=== PATIENT | female | born 1945 | race Hispanic/Latino ===

== ENCOUNTER → 2019-09-08 | Outpatient (CLI) | payer OTHER | END | disposition home or self-care (01) | LOC: RAH 13:23 | PROVIDERS: ATTEND Internal Medicine | DX: I65.21 Occlusion and stenosis of right carotid artery (principal); H53.132 Sudden visual loss, left eye | CPT/HCPCS: 93880 ==

== ENCOUNTER 2024-11-04 06:53 | Observation (INO) | payer OTHER ==
[2024-10-30 12:25] LABS: BASOPHILS # (AUTO) 0.07 K/uL (0.00-0.20); EOSINOPHILS # (AUTO) 0.12 K/uL (0.00-0.70); EOSINOPHILS % (AUTO) 1.7 % (0.0-8.0); HEMATOCRIT 34.6 % (36-48); IMMATURE GRANULOCYTE ABSOLUTE 0.01 K/uL (0-1); LYMPHOCYTES # (AUTO) 1.6 K/uL (1.0-4.8); LYMPHOCYTES % (AUTO) 22.7 % (21.0-51.0); MEAN CORPUSCULAR HEMOGLOBIN 29.3 pg (27.0-33.0); MEAN CORPUSCULAR HGB CONC 32.7 g/dL (32.0-36.0); MEAN CORPUSCULAR VOLUME 89.6 fL (79-99); MONOCYTES # (AUTO) 0.5 K/uL (0.1-1.0); MONOCYTES % (AUTO) 6.6 % (3.0-13.0); NEUTROPHILS # (AUTO) 4.7 K/uL (1.8-7.7); NEUTROPHILS % (AUTO) 67.9 % (40.0-77.0); PLATELET COUNT (AUTO) 370 K/uL (130-400); RED BLOOD CELL COUNT(AUTO) 3.86 MIL/uL (4.00-5.50); RED CELL DISTRIBUTION WIDTH 13.6 % (11.0-15.5); WHITE BLOOD COUNT (AUTO) 6.9 K/uL (4.8-10.8)
[2024-10-30 12:31] LABS: APPEARANCE,URINE CLEAR (CLEAR); BILIRUBIN,URINE NEGATIVE (NEGATIVE); COLOR,URINE LIGHT-YELLOW (YELLOW); GLUCOSE, URINE (UA) NEGATIVE (NEGATIVE); KETONES,URINE NEGATIVE (NEGATIVE); LEUKOCYTE ESTERASE ,URINE NEGATIVE Leu/uL (NEGATIVE); NITRATE,URINE NEGATIVE (NEGATIVE); OCCULT BLOOD,URINE NEGATIVE (NEGATIVE); PH,URINE 5.5 (5.0-8.0); PROTEIN,URINE NEGATIVE (NEGATIVE); UROBILINOGEN,URINE 0.2 mg/dL (0.2-1.0)
[2024-10-30 12:32] LABS: ADD UA MICROSCOPIC NO
[2024-10-30 12:35] VITALS: BP 195/92; PULSE 91; RESP 18; TEMP 97.2
[2024-10-30 12:40] LABS: INR 1.05 (0.85-1.15); PROTHROMBIN TIME 11.1 SEC (9.6-11.6)
[2024-10-30 12:41] LABS: ALBUMIN 3.8 g/dL (3.5-5.0); CREATININE 0.8 mg/dL (0.5-1.0); PARTIAL THROMBOPLASTIN TIME 28.4 SEC (26.3-35.5); POTASSIUM 4.1 mmol/L (3.5-5.1)
--- NOTE | 2024-10-30 12:45 | NUR ---
RE: IS INITIAL IS INITIAL TEACHING DONE BY RT CHASE DURING PREOP
[2024-11-04] VITALS (32 sets, daily range): BP systolic 132–190; BP diastolic 65–95; PULSE 61–80; RESP 15–18; TEMP 96.9–98.2; O2SAT 99
[~2024-11-04] VITALS: Ht 152.4 cm; Wt 68.8 kg
[~2024-11-04 06:53] MED LIST: ACET-2743 PO; ALEN70TA80 PO; AMLO-257 PO; ATOR10TA69 PO; CALC-1125 PO; CETI10TA57 PO; CHOL2000 PO; CLOP75TA32 PO; FOLI1 PO; LACT1TAB26 PO; OMEG100014 PO; PANT40TA54 PO; SODI100037 PO; SOLI5 PO; SOLI5TAB6 PO; SULF500T75 PO
[2024-11-04] MEDS ORDERED: GLYCOPYRROLATE 0.2 MG/ML 5 ML VIAL ONE (06:59)
[2024-11-04] MEDS ORDERED: SUCCINYLCHOLINE CHLORIDE 20 MG/ML 10 ML VIAL ONE (06:59)
[2024-11-04] MEDS ORDERED: ondanSETRON 4MG INJ ONE (06:59)
[2024-11-04] MEDS ORDERED: LIDOCAINE PF 100MG/5ML (2%) SYRINGE 5ML ONE (06:59)
[2024-11-04] MEDS ORDERED: proPOFol 10 MG/ML 20ML VIAL IV ONE (06:59)
[2024-11-04] MEDS ORDERED: rocuRONium bROMide 10MG/1ML 5ML VL ONE ×2 (06:59→10:29)
[2024-11-04] MEDS ORDERED: dexaMETHasone SOD PHOSPHATE 10MG/ML 1ML VIAL ONE (06:59)
[2024-11-04] MEDS ORDERED: NEOSTIGMINE METHYLSULFATE 1MG/ML IV ONE (06:59)
[2024-11-04] MEDS ORDERED: MIDAZOLAM HCL 1 MG/ML 2ML VIAL ONE (07:00)
[2024-11-04] MEDS ORDERED: FENTanyl CITRate PF 50 MCG/1 ML 2ML VIAL ONE (07:00)
[2024-11-04] MEDS ORDERED: ketaMINE 50MG/ML SYRINGE 50 MG/ML DISP.SYRIN ONE (07:06)
[2024-11-04] MEDS ORDERED: ALBUMIN (HUMAN) 5% 250 ML IV ONE (07:06)
[2024-11-04] MEDS ORDERED: phenylEPHRINE HCL 10 MG/ML 1ML VIAL IV ONE (08:35)
[2024-11-04] MEDS: TRANEXAMIC ACID 1000MG/10ML ONE (09:45)
[2024-11-04] MEDS ORDERED: ondanSETRON 4MG INJ IVP PRN (10:00)
[2024-11-04] MEDS ORDERED: CALCIUM CARB 500MG PO PRN (10:00)
[2024-11-04] MEDS: ceFAZolin SODIUM 2 GM VIAL ONE (10:00)
[2024-11-04] MEDS ORDERED: CYCLOBENZAPRINE HCL 10 MG TABLET PO PRN (10:00)
[2024-11-04] MEDS ORDERED: FE FUMARATE/FA/MV, MIN COMB#15 1 TAB PO PRN (10:00)
[2024-11-04] MEDS ORDERED: traMADol HCL 50 MG TABLET PO PRN (10:00)
[2024-11-04] MEDS ORDERED: PoTASSium chloRIDE 20MEQ/100ML 100 ML IV PRN (10:00)
[2024-11-04] MEDS: ketOROlac 15MG/ML VIAL (15MG/ML) IV SCH (10:00)
[2024-11-04] MEDS ORDERED: SODIUM CHLORIDE 1,000 MG TAB PO SCH (12:00)
--- NOTE | 2024-11-04 12:10 | OP ---
Operative Note: DATE OF PROCEDURE: 11/04/24 SURGEON: ROMEO SANTILLAN MD PROFESSIONAL POKER PLAYER: TEA Alvarez ANESTHESIA: General and interscalene block ANESTHESIOLOGIST/MEDICAL INSTRUMENT CABLE FABRICATOR: JYOTHI Gamboa PREOPERATIVE DIAGNOSIS: Right shoulder cuff tear arthropathy POSTOPERATIVE DIAGNOSIS: Right shoulder cuff tear arthropathy PROCEDURE: Right reverse total shoulder arthroplasty ESTIMATED BLOOD LOSS: 150 cc COMPLICATIONS: None DRAINS: None SPECIMENS: resected bone from the humeral head not sent to pathology IMPLANTS: [employer] size 10 x 32 FX V135 humeral stem, 32 +3 135/145 stability cup, 32 centered glenosphere, +3 mm lateralized base plate with one compression and two locking screws INDICATIONS: Seth 9-year-old female with right shoulder pain and dysfunction secondary to rotator cuff arthropathy. The patient was failing conservative management and was found on MRI to have a large retracted rotator cuff tear with atrophy of the muscles. After discussion the risk, benefits, and alternatives, the patient voluntarily agreed to undergo the aforementioned procedure. DESCRIPTION OF PROCEDURE: Patient was properly identified in the preoperative holding area. Surgical site marking was verified and surgery consent reviewed. The patient was then taken to the operating room and placed in supine position on the OR table. After induction of general anesthesia, preoperative antibiotics were given, all bony prominences were well-padded as the patient was transitioned into beach chair positioning. The right upper extremity was then prepped and draped in usual sterile fashion. Surgical time out was done verifying correct surgery, side, site, and location to be performed. We then began the procedure by making approximately 12 cm long incision over the deltopectoral interval using a 10 blade. Hemostasis was performed using Bovie electrocautery. We then dissected through the subcutaneous tissues using the Metzenbaums to identify our deltopectoral interval. We then mobilized the cephalic vein laterally as we opened the interval. We then incised the clavipectoral fascia just lateral to the conjoined tendon and placed our retractor deep to this. We identified the long head of the biceps tendon and performed a tenotomy. We then began elevating the subscapularis off of its insertion on the humeral head using Bovie electrocautery. With external rotation we brought the humeral head into view and released the capsule at the inferior aspect of the head. We released a small portion of the pectoralis off of its insertion on the humerus to allow for better exposure. We then placed our retractors protecting soft tissue. At this point we began using the sounding instruments, hand reaming up to a size 12. We pinned the cutting guide off of the handle in 30 degrees of version and performed the humeral osteotomy. We then broached up to a size 10 x 32. The ronguer was used to clean up our cut. We then placed our retractors around the glenoid to provide adequate exposure of the glenoid. The labrum and long head biceps tendon were resected with Bovie electrocautery. We then used to the guide to insert our central guidepin en suring we were far enough inferior on the glenoid face. Over the central guidepin we reamed with the all-in-one reamer for the central peg and the baseplate. We then used the rubber process hand to clean up the remaining soft tissue and bone. We then thoroughly irrigated out the glenoid bone and impacted into position the glenoid baseplate. We then placed 1 compression screw and 2 loc marian screw in the baseplate. We noted using a freer elevator that the baseplate was appropriately seated. We elected to use a 32 centered glenosphere. Glenosphere was then seated in standard fashion with the setscrew tightened. We then removed our retractors and dislocated the humerus once more. We remove the protective cap from the cut end of the humerus. We then elected to trial with a size +3 135/145 polyethylene. With this in place, we reduced the humerus and noted good stable range of motion. We then dislocated the humerus and remove the trial components. We thoroughly irrigated out the bone. We seated the final stem implant and trialed once more. The size +3 135/145 polyethylene was still appropriate so we opened the final polyethylene and implanted this in standard fashion. We then reduced the humerus once more and ensured appropriate range of motion and stability. We checked the position of the components under fluoroscopy and found him to be appropriate. We thoroughly irrigated out the wound. We then began loosely repairing the deltopectoral interval using #2 Ethibond. Subcutaneous tissue was approximated using 2-0 Vicryl. The skin was closed using a running subcuticular 3-0 Monocryl with Dermabond applied. An Optifoam dressing was applied once the Dermabond dried. The patient was then placed into a sling, awakened from anesthesia, and taken recovery room in stable condition. ROMEO SANTILLAN MD Nov 04, 2024 12:09
--- NOTE | 2024-11-04 12:29 | HMCIMG ---
INTRAOPERATIVE FLUOROSCOPIC GUIDANCE UP TO 1 HOUR. IMPRESSION: Intraoperative fluoroscopic guidance was provided for ORIF right TSA reverse, which was performed by Dr. Nelson. Total fluoroscopy time was 7.9 seconds, and administered dose, 0.32 mGy. A total of 4 spot images obtained. Please refer to the orthopedic procedure note for further details.
--- NOTE | 2024-11-04 12:51 | HMCIMG ---
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 Reverse right shoulder arthroplasty hardware appears normal and overlying soft tissue swelling/air are expected after surgery, but no evidence for retained foreign body.
[2024-11-04] MEDS: MEPERIDINE-PF 100 MG/ML SYG ONE (13:00)
[2024-11-04] MEDS: 0.9%NACL 1000ML 1,000 ML IV SCH (13:42)
[2024-11-04] MEDS: ceFAZolin SODIUM 2 GM VIAL IVP SCH (18:27)
[2024-11-04] MEDS: SODIUM CHLORIDE 1,000 MG TAB PO SCH (18:33)
[2024-11-04] MEDS: amLODIPine 5 MG TAB PO SCH (19:41)
[2024-11-04] MEDS: doCUSate SODIUM 100 MG CAP PO SCH (19:41)
[2024-11-04] MEDS: atorVAStatin 10 MG TABLET PO SCH (19:41)
[2024-11-04] MEDS: Solifenacin Succinate 5 MG PO SCH (19:52)
[2024-11-04] MEDS: LACTATED RINGERS 1000ML 1,000 ML IV ONE (20:36)
[2024-11-04] MEDS: FAMOTIDINE 20MG VIAL IV ONE (20:36)
[2024-11-05] MEDS: ceFAZolin SODIUM 2 GM VIAL IVP SCH (02:18)
[2024-11-05 04:07] VITALS: BP 119/64; PULSE 66; RESP 18; TEMP 98.4
[2024-11-05 04:34] LABS: HEMATOCRIT 29.5 % (36-48); MEAN CORPUSCULAR HEMOGLOBIN 29.1 pg (27.0-33.0); MEAN CORPUSCULAR HGB CONC 32.5 g/dL (32.0-36.0); MEAN CORPUSCULAR VOLUME 89.4 fL (79-99); RED BLOOD CELL COUNT(AUTO) 3.3 MIL/uL (4.00-5.50); RED CELL DISTRIBUTION WIDTH 13.5 % (11.0-15.5); WHITE BLOOD COUNT (AUTO) 10.7 K/uL (4.8-10.8)
[2024-11-05 04:43] LABS: CREATININE 0.8 mg/dL (0.5-1.0); POTASSIUM 3.4 mmol/L (3.5-5.1)
[2024-11-05] MEDS: PoTASSium chloRIDE 20MEQ ER 20 MEQ ERTAB PO PRN (06:12)
[2024-11-05] MEDS: HYDROcodone/APAP 5/325 1 TAB TABLET PO PRN (06:44)
[2024-11-05 08:00] VITALS: BP 144/72; PULSE 68; RESP 18; TEMP 98.1; O2SAT 99
[2024-11-05] MEDS: PANTOPrazole 40 MG TAB DR PO SCH (08:43)
[2024-11-05] MEDS: ceTIRIzine HCL 5 MG TABLET PO SCH (08:44)
[2024-11-05] MEDS: polyETHYLene GLYCol 3350 17 GM POWD.PACK PO SCH (08:44)
[2024-11-05] MEDS: FOLic ACID 1 MG TABLET PO SCH (08:44)
[2024-11-05] MEDS: (Cholecalciferol (Vitamin D3) (Vitamin D3) 50 MCG) PO SCH (09:00)
[2024-11-05] MEDS: (Calcium Carbonate (Calcium) 600 MG) PO SCH (09:00)
[2024-11-05] MEDS: Solifenacin Succinate 5 MG PO SCH (09:00)
[2024-11-05] MEDS: PoTASSium chl 10% ELIXIR 20MEQ 20 MEQ/15 ML UDCUP PO PRN (10:38)
--- NOTE | 2024-11-05 11:47 | NUR ---
DC PLAN VISITED WITH PATIENT. PATIENT LIVES WITH DAUGHTER. SEMI INDEPENDENT ABLE TO PERFORM ADL'S. PATIENT HAS A ROLLATOR WALKER AND PROVIDER 4 HRS A DAY. THERE WAS A QUAD CANE IN ROOM. ASKED IF WAS USING IT SAID NO ONLY TO PUT FEET UP BECAUSE THERE WAS NO STOOLS AVAILABLE. ARIAS SIGNED FOR [facility]. PACKET MADE AND SENT. Addendum: 11/05/24 at 1153 by EMERY SCHROEDER RN CM Amended: Links added.
[2024-11-05 12:00] VITALS: BP 127/63; PULSE 61; RESP 19; TEMP 97.6
--- NOTE | 2024-11-05 15:08 | NUR ---
DC PLAN [facility] [phone] PACKET SENT TO [facility]. FOLLOW UP NOT IN NETWORK MARITZA LET PATIENT, FAMILY AND MD KNOW. PATIENT GAVE OKAY FOR ANY IN NETWORK. PACKET SENT TO [facility]. CALLED SAID RECEIVED AND APPROVED. MARITZA LET NURSE, PATIENT AND FAMILY, MD KNOW OF ACCEPTANCE. NUMBER FOR REPORT GIVEN TO NURSE. Addendum: 11/05/24 at 1513 by EMERY SCHROEDER RN CM Amended: Links added.
[2024-11-05 15:45] VITALS: BP 139/70; PULSE 61; RESP 18; TEMP 98.7
[2024-11-05] MEDS ORDERED: CYCL-309 PO (16:33)
[2024-11-05] MEDS ORDERED: HYDR-4060 PO (16:33)
[2024-11-05] MEDS ORDERED: DOCU-116 PO (16:33)
--- NOTE | 2024-11-05 17:40 | NUR ---
patient oob ambulating in room patient and daughter saravanan were given discharge instructions and follow up with md in 2-3 weeks . home instructions as per dr mcmahon involving rt shoulder exercises and medications were reviewed with patient and daughter . report was called to dre rodriguez lvn at [facility] exercise and wound care instructions were relayed to nurse.wound care instructions at home and s/s to report to md immediately were discussed with patient and daughter. both stated they fully understood instructions given on s/s to report. patient was discharged home with belongings and copy of discharge summary.
--- NOTE | 2024-11-06 15:10 | NUR ---
DC PLAN JUST IN CASE HOME HEALTH CAN NOT FIND PATIENT. PATIENT IS STAYING AT [address] [facility] [id number]. PLACED INFO IN PACKET. Addendum: 11/06/24 at 1513 by EMERY SCHROEDER RN CM Amended: Links added.
[2024-11-07] MEDS ORDERED: BisaCODYL 10 MG SUPP.RECT RC PRN (10:00)
[2024-11-11] MEDS ORDERED: ALENDRONATE SODIUM 35 MG TAB PO SCH (06:30)
== END 2024-11-05 17:45 | disposition home or self-care (01) ==
LOC: DAH 06:53 → DAHIP 06:54 → 4CH 13:30
PROVIDERS: ADMIT Student in an Organized Health Care Education/Training Program; ATTEND Student in an Organized Health Care Education/Training Program
DX: M12.811 Other specific arthropathies, not elsewhere classified, right shoulder (principal); G89.18 Other acute postprocedural pain; M75.101 Unspecified rotator cuff tear or rupture of right shoulder, not specified as traumatic; I10 Essential (primary) hypertension; K21.9 Gastro-esophageal reflux disease without esophagitis; Z86.2 Personal history of diseases of the blood and blood-forming organs and certain disorders involving the immune mechanism; Z79.899 Other long term (current) drug therapy
CPT/HCPCS: 82040; 80048 ×2; 85025; 85610; 85730; 87086; 86140; 81003; 36415 ×2; 87641; 64415; 73020; 96365; 96375; 23472; 73030; 97161; 97116 ×3; 96376; 96366; 85027; 97530 ×2; G0378 ×26; A4223 ×2; C1776 ×4; C1713 ×4; A4663; J7030; P9045; J7120; J3490 ×6; J3010; J1100; J0330; J2003; J2250; J2704; J2405; J2710; J2175; J1885 ×2; J2371; J0690 ×4; A4930 ×2; A4649; A6254; A5120; A4215; A4213; A4222; A4221; A4216

== ENCOUNTER → 2025-08-02 | Outpatient (CLI) | payer OTHER ==
[~2025-08-02] MED LIST changes: -ACET-2743 PO; +CYCL-309 PO; +DOCU-116 PO; +HYDR-4060 PO
--- NOTE | 2025-08-02 16:21 | HMCIMG ---
EXAM: Renal Ultrasound. CLINICAL INDICATION: Low back pain, unspecified. COMPARISON: None available. TECHNIQUE: Grayscale and limited color Doppler ultrasound evaluation of the kidneys and urinary bladder was performed. FINDINGS: RIGHT KIDNEY: The right kidney measures 9.2 x 3.2 x 4.2 cm. Renal cortical echogenicity is within normal limits and preserved relative to the liver. Corticomedullary differentiation is maintained. No hydronephrosis, renal calculi, or focal solid or cystic renal masses are identified. LEFT KIDNEY: The left kidney measures 9.1 x 4.2 x 3.8 cm. Renal cortical echogenicity and thickness are normal with preserved corticomedullary differentiation. No hydronephrosis, nephrolithiasis, or focal renal mass is seen. URINARY BLADDER: The urinary bladder is partially distended. The bladder wall measures approximately 3 mm in thickness, which is within normal limits for the degree of distention. No intraluminal masses, stones, or debris are identified. IMPRESSION: 1. Normal sonographic appearance of the kidneys without evidence of hydronephrosis, renal calculi, or focal renal mass. 2. Normal urinary bladder wall thickness without sonographic abnormality. RECOMMENDATIONS: In accordance with ACR Appropriateness Criteria, no further imaging is recommended at this time for uncomplicated low back pain in the absence of red flag symptoms or abnormal findings. If symptoms persist, worsen, or if clinical concern for non-renal pathology arises, further evaluation should be guided by clinical assessment. /[place]
== END | disposition home or self-care (01) ==
LOC: RAH 10:12
PROVIDERS: ATTEND Internal Medicine
DX: N32.89 Other specified disorders of bladder (principal); M54.50 Low back pain, unspecified
CPT/HCPCS: 76770